=== PATIENT | female | born 1985 | race Caucasian/White ===

== ENCOUNTER 2018-11-26 23:09 | Emergency (ER) | payer OTHER ==
[~2018-11-26 23:09] MED LIST: LIDOCAINE PATCH REMOVAL MC SCH
[2018-11-26 23:19] VITALS: BP 116/82; PULSE 82; TEMP 98.8; BMI 26.6
--- NOTE | 2018-11-26 23:19 | PDOC ---
*Physical Exam - Vital Signs Last Vital Signs Temp Pulse Resp BP Pulse Ox 98.8 F 82 16 116/82 98 11/26/18 23:09 11/26/18 23:09 11/26/18 23:09 11/26/18 23:09 11/26/18 23:09 Medical Decision Making - Medical Decision Making 11/26/18 23:19Patient seen by the advanced practice provider under my direct supervision. Ancillary testing reviewed as necessary. I agree with plan as outlined by the advanced practice provider. *DC/Admit/Observation/Transfer Diagnosis at time of Disposition: Muscle spasm of back - Discharge Dispostion Disposition: HOME Condition at time of disposition: Fair - Prescriptions Prescriptions: Ibuprofen 600 mg PO QID PRN #30 tablet PRN Reason: Back Pain Lidocaine 5% Patch [Lidoderm -] 1 patch TP DAILY #7 patch Methocarbamol [Robaxin -] 500 mg PO BID PRN #12 tablet PRN Reason: Muscle Spasms - Referrals - Patient Instructions Printed Discharge Instructions: Muscle Strain Additional Instructions: apply ICE to the affected area. take ibuprofen every 6 hours as need apply lidocaine patch once daily follow up with doctor as soon as possible. Additional Instructions: * Please call your personal physician to report your Emergency Department visit and to report your progress, if any. * If there is no improvement in symptoms in 2 days call your physician. * Return to the Emergency Department for any worsening symptoms. - Post Discharge Activity Forms/Work/School Notes: Back to Work
[2018-11-26] MEDS ORDERED: KETOROLAC TROMETHAMINE 30 MG/1 ML VIAL IM ONE (23:28)
--- NOTE | 2018-11-26 23:28 | PDOC ---
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 patient has a history of lower back pain and sciatica reports similar symptoms in the past with heavy lifting. reports that pain is shooting down left lower leg. Past History - Past Medical History Allergies/Adverse Reactions: Allergies Allergy/AdvReac Type Severity Reaction Status Date / Time No Known Allergies Allergy Verified 11/26/18 23:17 Home Medications: Ambulatory Orders Albuterol Sulfate Inhaler - [Ventolin Hfa *Inhaler*] 2 inh IH ONCE PRN 07/09/13 Pnv No.25/Iron Fumarate/FA/Dha [-1 Capsule] 1 each PO 07/09/13 Ibuprofen 600 mg PO QID PRN #30 tablet 11/26/18 Lidocaine 5% Patch [Lidoderm -] 1 patch TP DAILY #7 patch 11/26/18 Methocarbamol [Robaxin -] 500 mg PO BID PRN #12 tablet 11/26/18 Asthma: Yes Cancer: No Cardiac Disorders: No Diabetes: No HTN: No Seizures: No Thyroid Disease: No - Suicide/Smoking/Psychosocial Hx Smoking History: Never smoked Have you smoked in the past 12 months: No Information on smoking cessation initiated: No Hx Alcohol Use: No Drug/Substance Use Hx: No Hx Substance Use Treatment: No Review of Systems - Review of Systems Able to Perform ROS?: Yes Is the patient limited [place]ish proficient: No Musculoskeletal: Yes: Back Pain. No: Symptoms Reported, See HPI, Gout, Joint Pain, Joint Swelling, Muscle Pain, Muscle Weakness, Neck Pain, Joint Stiffness, Other *Physical Exam - Vital Signs Last Vital Signs Temp Pulse Resp BP Pulse Ox 98.8 F 82 16 116/82 98 11/26/18 23:09 11/26/18 23:09 11/26/18 23:09 11/26/18 23:09 11/26/18 23:09 - Physical Exam General Appearance: Yes: Appropriately Dressed Respiratory/Chest: positive: Lungs Clear Musculoskeletal: positive: Normal Inspection. negative: Vertebral Tenderness ( no midline tenderness. left lower back tenderness on palpation and rom) Extremity: positive: Normal Capillary Refill, Normal Inspection, Normal Range of Motion Neurologic: positive: Fully Oriented, Alert Moderate Sedation - Procedure Monitoring Vital Signs: Procedure Monitoring Vital Signs Temperature 98.8 F 11/26/18 23:09 Pulse Rate 82 11/26/18 23:09 Respiratory Rate 16 11/26/18 23:09 Blood Pressure 116/82 11/26/18 23:09 O2 Sat by Pulse Oximetry (%) 98 11/26/18 23:09 Medical Decision Making - Medical Decision Making 11/26/18 23:51 lower back pain acute on chronic P: toradol; lidocaine patch *DC/Admit/Observation/Transfer Diagnosis at time of Disposition: Muscle spasm of back - Discharge Dispostion Disposition: HOME Condition at time of disposition: Fair - Prescriptions Prescriptions: Ibuprofen 600 mg PO QID PRN #30 tablet PRN Reason: Back Pain Lidocaine 5% Patch [Lidoderm -] 1 patch TP DAILY #7 patch Methocarbamol [Robaxin -] 500 mg PO BID PRN #12 tablet PRN Reason: Muscle Spasms - Referrals - Patient Instructions Printed Discharge Instructions: Muscle Strain Additional Instructions: apply ICE to the affected area. take ibuprofen every 6 hours as need apply lidocaine patch once daily follow up with doctor as soon as possible. Additional Instructions: * Please call your personal physician to report your Emergency Department visit and to report your progress, if any. * If there is no improvement in symptoms in 2 days call your physician. * Return to the Emergency Department for any worsening symptoms. - Post Discharge Activity Forms/Work/School Notes: Back to Work
[2018-11-26] MEDS ORDERED: KETOROLAC TROMETHAMINE 30 MG/1 ML VIAL ONE (23:33)
[2018-11-26] MEDS ORDERED: LIDOCAINE 5% TOPICAL PATCH TP ONE (23:38)
[2018-11-26] MEDS ORDERED: LIDOCAINE 5% TOPICAL PATCH ONE (23:40)
[2018-11-27] MEDS ORDERED: LIDOCAINE PATCH REMOVAL MC ONE (11:00)
== END 2018-11-27 00:30 | disposition home or self-care (01) ==
LOC: JER 23:09
PROC: 3E0233Z Introduction of Anti-inflammatory into Muscle, Percutaneous Approach (ICD-10-PCS; principal; 2018-11-26)
DX: M62.830 Muscle spasm of back (principal); S39.012A Strain of muscle, fascia and tendon of lower back, initial encounter; X50.9XXA Other and unspecified overexertion or strenuous movements or postures, initial encounter; Y93.F2 Activity, caregiving, lifting; Y92.230 Patient room in hospital as the place of occurrence of the external cause; Y99.0 Civilian activity done for income or pay
CPT/HCPCS: 99281-25

== ENCOUNTER 2021-06-01 17:53 | Inpatient (IN) | payer OTHER ==
[2021-06-01] MEDS ORDERED: PROMETHAZINE HCL 25 MG/1 ML VIAL IVPUSH ONE (18:27)
[2021-06-01] MEDS ORDERED: BUTORPHANOL TARTRATE 1 MG/ML VIAL IVPB ONE (18:27)
[2021-06-01] MEDS ORDERED: DINOPROSTONE 10 MG VAGINAL SUPPOSITORY VG ONE (18:29)
[2021-06-01] MEDS ORDERED: AMPICILLIN - 2 GM in SODIUM CHLORIDE 100 ML IVPB ONE (18:31)
[2021-06-01 18:42] VITALS: BMI 35.4
[2021-06-01 20:35] LABS: BASO % 0.2 % (0-2.0); EOS % 0.9 % (0-4.5); HEMATOCRIT 33.2 % (32.4-45.2); HEMOGLOBIN 11.4 GM/dL (10.7-15.3); LYMPH % 19.8 % (8-40); MCH 31.2 pg (25.7-33.7); MCHC 34.3 g/dl (32.0-36.0); MEAN CELL VOLUME 91.2 fl (80-96); MONO % 6.9 % (3.8-10.2); NEUT % 72.2 % (42.8-82.8); PLATELET COUNT 146 10^3/uL (134-434); RBC 3.64 M/mm3 (3.60-5.2); RDW 14.3 % (11.6-15.6); WHITE BLOOD COUNT 8.3 K/mm3 (4.0-10.0)
[2021-06-01 20:58] LABS: INR 0.93 (0.83-1.09); PROTHROMBIN TIME (PATIENT) 11.5 SEC (9.7-13.0)
[2021-06-01 21:02] LABS: ACTIVATED PTT 25.5 SECONDS (25.2-36.5)
[2021-06-01 21:20] LABS: CALCIUM 8.1 mg/dL (8.5-10.1)
[2021-06-01 21:21] LABS: BLOOD UREA NITROGEN 8.4 mg/dL (7-18)
[2021-06-01 21:24] LABS: CREATININE 0.4 mg/dL (0.55-1.3)
[2021-06-01 22:15] LABS: HIV INTERPRETATION NEGATIVE (NEGATIVE)
[2021-06-01] MEDS ORDERED: AMPICILLIN - 1 GM in SODIUM CHLORIDE 100 ML IVPB SCH (22:30)
[2021-06-01] MEDS: DEXTROSE 5%-LACTATED RINGERS 1,000 ML IV SCH (23:00)
[2021-06-02] MEDS ORDERED: AMPICILLIN SODIUM 2 GM VIAL ONE (01:59)
[2021-06-02] MEDS ORDERED: AMPICILLIN - 2 GM in SODIUM CHLORIDE 100 ML IVPB ONE (02:00)
[2021-06-02] MEDS ORDERED: AMPICILLIN SODIUM 1 GM VIAL ONE ×3 (05:57→14:22)
[2021-06-02] MEDS: AMPICILLIN - 1 GM in SODIUM CHLORIDE 100 ML IVPB SCH ×5 (06:00→22:07)
[2021-06-02] MEDS ORDERED: PCA PUMP NR ONE (08:19)
[2021-06-02] MEDS ORDERED: FENTANYL/BUPIVACAINE/NS/PF - PCEA - 50 ML DISP.SYRIN EP ONE ×3 (08:20→16:37)
[2021-06-02] MEDS: FENTANYL/BUPIVACAINE/NS/PF - PCEA - 50 ML DISP.SYRIN EP SCH ×2 (08:45→12:56)
[2021-06-02 10:07] LABS: POC NITRAZINE POS
[2021-06-02] MEDS ORDERED: NALOXONE HCL 0.4 MG/ML VIAL IVPUSH PRN (10:37)
[2021-06-02] MEDS ORDERED: FENTANYL/BUPIVACAINE/NS/PF - PCEA - 50 ML DISP.SYRIN EP SCH (11:20)
[2021-06-02] MEDS ORDERED: OXYTOCIN 30 UNITS in 0.9% NS 30 UNIT/500 ML INFUS.BAG IVPB ONE (11:30)
[2021-06-02] MEDS ORDERED: OXYTOCIN 30 UNITS in 0.9% NS 30 UNIT/500 ML INFUS.BAG IVPB SCH (12:00)
[2021-06-02] MEDS ORDERED: BUPIVACAINE HCL/PF 0.25% (2.5MG/ML) 10 ML VIAL ONE (12:01)
[2021-06-02] MEDS ORDERED: OXYTOCIN 20 UNITS in 0.9% NS 20 UNIT/1,000 ML INFUS.BAG IV ONE (13:45)
[2021-06-02] MEDS ORDERED: LIDOCAINE HCL 1% PRESERVATIVE FREE - 30ML VIAL ONE (13:46)
[2021-06-02] MEDS: OXYTOCIN 20 UNITS in 0.9% NS 20 UNIT/1,000 ML INFUS.BAG IV SCH (16:50)
[2021-06-02] MEDS ORDERED: BENZOCAINE 20% 57 GM BOTTLE TP PRN (16:58)
[2021-06-02] MEDS ORDERED: BISACODYL 10 MG SUPP.RECT RC PRN (16:58)
[2021-06-02] MEDS ORDERED: METHYLERGONOVINE MALEATE 0.2 MG/1 ML AMP IM PRN (16:58)
[2021-06-02] MEDS ORDERED: BENZOCAINE 28 GM HEMORRHOIDAL OINTMENT TP PRN (16:58)
[2021-06-02] MEDS ORDERED: WITCH HAZEL 50% (TUCKS) 40 PAD/JAR PAD TP PRN (16:58)
[2021-06-02 18:05] LABS: CORD BASE EXCESS -9.9 mmol/L (0-2); CORD HCO3 19.7 mmHg (20-29); CORD PCO2 58.1 mmHg (30-78); CORD pH 7.148 (7.14-7.44)
[2021-06-02 18:07] LABS: CORD BASE EXCESS -9.5 mmol/L (0-2); CORD HCO3 16.7 mmHg (20-29); CORD PCO2 37.4 mmHg (30-78); CORD pH 7.268 (7.14-7.44)
[2021-06-02] MEDS: DEXTROSE 5%-LACTATED RINGERS 1,000 ML IV SCH (18:34)
[2021-06-02] MEDS ORDERED: ACETAMINOPHEN 325 MG TABLET (FP) ONE (18:42)
[2021-06-02] MEDS ORDERED: IBUPROFEN 600 MG TABLET (FP) PO ONE (18:42)
[2021-06-02] MEDS: IBUPROFEN 600 MG TABLET (FP) PO PRN (18:45)
[2021-06-02] MEDS: ACETAMINOPHEN 325 MG TABLET (FP) PO PRN (18:45)
[2021-06-03 09:18] LABS: BASO % 0.3 % (0-2.0); EOS % 0.7 % (0-4.5); HEMATOCRIT 28.3 % (32.4-45.2); HEMOGLOBIN 9.5 GM/dL (10.7-15.3); LYMPH % 15.2 % (8-40); MCH 31.4 pg (25.7-33.7); MCHC 33.5 g/dl (32.0-36.0); MEAN CELL VOLUME 93.8 fl (80-96); MEAN PLT VOLUME 9.6 fl (7.5-11.1); MONO % 5.5 % (3.8-10.2); NEUT % 78.3 % (42.8-82.8); PLATELET COUNT 135 10^3/uL (134-434); RBC 3.01 M/mm3 (3.60-5.2); RDW 14.7 % (11.6-15.6); WHITE BLOOD COUNT 11.4 K/mm3 (4.0-10.0)
[2021-06-03] MEDS: PRENATAL VITAMINS W/ FOLIC ACID TABLET (FP) PO SCH (09:42)
[2021-06-03] MEDS ORDERED: DIPHTH,PERTUSS(ACELL),TET 0.5 ML DISP.SYRIN IM ONE (10:00)
[2021-06-03] MEDS: OXYTOCIN 20 UNITS in 0.9% NS 20 UNIT/1,000 ML INFUS.BAG IV SCH (17:25)
[2021-06-03] MEDS: IBUPROFEN 600 MG TABLET (FP) PO PRN (21:28)
[2021-06-03] MEDS: ACETAMINOPHEN 325 MG TABLET (FP) PO PRN (21:29)
[2021-06-03] MEDS ORDERED: SENNOSIDES/DOCUSATE COMBO (SENNA PLUS) TABLET (UD) PO PRN (22:00)
[2021-06-04] MEDS: IBUPROFEN 600 MG TABLET (FP) PO PRN (09:06)
[2021-06-04] MEDS: PRENATAL VITAMINS W/ FOLIC ACID TABLET (FP) PO SCH (09:06)
[2021-06-04] MEDS: ACETAMINOPHEN 325 MG TABLET (FP) PO PRN (09:07)
[2021-06-04 10:25] VITALS: BP 126/70; PULSE 93; TEMP 97.3
== END 2021-06-04 13:00 | disposition home or self-care (01) | DRG 807 ==
LOC: JLDR 17:53 → J3W 06-02 19:30
PROVIDERS: ADMIT Obstetrics & Gynecology; ATTEND Obstetrics & Gynecology
PROC: 0KQM0ZZ Repair Perineum Muscle, Open Approach (ICD-10-PCS; principal; 2021-06-02)
PROC: 10E0XZZ Delivery of Products of Conception, External Approach (ICD-10-PCS; 2021-06-02)
DX: O70.1 Second degree perineal laceration during delivery (principal); Z3A.39 39 weeks gestation of pregnancy; Z37.0 Single live birth
CPT/HCPCS: 36415; 36600; 59409; 80048; 82803; 83986-QW; 85025; 85610; 85730; 86780; 86850; 86900; 86901; 87389; 90715; C9803; U0003; U0005

== ENCOUNTER 2023-02-07 03:59 | Day surgery (SDC) | payer OTHER ==
[2023-02-03 09:22] VITALS: BMI 31.6
[2023-02-07] MEDS ORDERED: LIDOCAINE HCL 1%, 10 MG/ML (10ML VIAL) MDV ONE (08:41)
[2023-02-07] MEDS ORDERED: MIDAZOLAM HCL 2 MG/2 ML SINGLE DOSE VIAL ONE (08:55)
[2023-02-07] MEDS ORDERED: PROPOFOL 20 ML ONE (08:55)
[2023-02-07] MEDS ORDERED: SUCCINYLCHOLINE CHLORIDE 200 MG/10 ML SYRINGE ONE (08:55)
[2023-02-07] MEDS ORDERED: ROCURONIUM BROMIDE 50 MG/5 ML SYRINGE ONE (09:09)
[2023-02-07] MEDS ORDERED: ONDANSETRON 4 MG/2 ML VIAL ONE (09:10)
[2023-02-07] MEDS ORDERED: KETOROLAC TROMETHAMINE 30 MG/1 ML VIAL ONE (09:10)
[2023-02-07] MEDS ORDERED: DEXAMETHASONE SOD PHOSPHATE 4 MG/1 ML VIAL ONE (09:10)
[2023-02-07] MEDS ORDERED: NEOSTIGMINE METHYLSULFATE 0.5 MG/1 ML - 10 ML MDV ONE (09:40)
[2023-02-07] MEDS ORDERED: GLYCOPYRROLATE 0.2 MG/1 ML VIAL ONE ×2 (09:40)
[2023-02-07] MEDS ORDERED: LIDOCAINE HCL 1%, 10 MG/ML (20ML VIAL) NR ONE (09:43)
[2023-02-07] MEDS ORDERED: oxyCODONE HCL 5 MG TABLET PO PRN ×2 (09:56→10:12)
[2023-02-07] MEDS ORDERED: ONDANSETRON 4 MG/2 ML VIAL IVPUSH PRN ×2 (09:56→10:12)
[2023-02-07] MEDS ORDERED: IBUPROFEN 600 MG TABLET (FP) PO PRN (10:12)
[2023-02-07] MEDS ORDERED: IBUPROFEN 800 MG/8 ML IJ IVPB PRN (10:12)
[2023-02-07] MEDS ORDERED: ELECTROLYTE-148 SOLN 1,000 ML IV SCH (10:15)
[2023-02-07 11:50] VITALS: RESP 16
[2023-02-07 12:15] VITALS: BP 112/69; PULSE 79; TEMP 98
== END 2023-02-07 12:30 | disposition home or self-care (01) ==
LOC: JASU-SURG 03:59
PROVIDERS: ATTEND Obstetrics & Gynecology
PROC: 0UB74ZZ Excision of Bilateral Fallopian Tubes, Percutaneous Endoscopic Approach (ICD-10-PCS; principal; 2023-02-07 09:00)
DX: Z30.2 Encounter for sterilization (principal)
CPT/HCPCS: 81025; 88302-TC; 94760